=== PATIENT | female | born 1970 | race Caucasian/White ===

== ENCOUNTER → 2019-05-21 12:34 | Outpatient (BNVA) | payer MEDICAID, SELFPAY | PROVIDERS: Visit Provider Specialist | DX: G43.711 Chronic migraine without aura, intractable, with status migrainosus (principal); G51.0 Bell's palsy | CPT/HCPCS: 99203 ==

== ENCOUNTER 2019-05-29 10:01 | Outpatient (CLI) | payer MEDICAID, SELFPAY ==
--- NOTE | 2019-05-29 10:42 | MR_ITS ---
WS: [id number] MRI BRAIN WITHOUT CONTRAST HISTORY: new onset of migraine COMPARISON: None available. TECHNIQUE: Diffusion imaging, multiplanar T1, T2 and FLAIR imaging obtained. No evidence for acute infarct or hemorrhage. Donovan-white matter differentiation is normal. Mild chroni c microvascular ischemic disease in the subcortical and periventricular white matter. No remote or acute infarcts are volume loss. Ventricles and extra-axial spaces are normal. No inferior displacement of cerebellar tonsils. The sella turcica and pituitary gland are unremarkabl e. Posterior fossa is also unremarkable. Dural venous sinuses and resighini of [place] demonstrate no abnormality on this unenhanced studies. Paranasal sinuses: Mild mucoperiosteal thickening. No air-fluid levels. Mastoid air cells: Normal. Calvarium and scalp: Intact.
--- NOTE | 2019-05-29 11:49 | MR_ITS ---
WS: [id number] MRI HEAD WITHOUT CONTRAST TECHNIQUE: Sagittal T1, T2 axial, T2 axial FLAIR, axial and coronal T1 images, axial susceptibility w eighted imaging, axial diffusion weighted images, and coronal T2 images were obtained. CLINICAL INFORMATION: new onset of migraine COMPARISON: None. FINDINGS: No evidence of restricted diffusion to suggest acute ischemia. Ventricular system and basal cisterns are patent. Mild supratentorial periventricular and subcortical white matter changes nonspecific in a patient this age but can be seen with hypertension, diabetes, collagen vascular disease, and migrain e headaches. No significant infratentorial lesions. Normal posterior fossa. Normal vascular flow voids at the skull base. No extra-axial fluid collection s. Incidental prominent perivascular spaces in the basal ganglia. Visualized upper cervical spine is normal. Normal optic chiasm and pituitary infundibulum. Normal cavernous sinus. Temporal lobes and hi ppocampal formations are normal in appearance. No hemosiderin on susceptibly weighted images. Promine nt bilateral intraparotid lymph nodes likely reactive. MR/MR head wo con* [id number] IMPRESSION: 1. No evidence of restricted diffusion to suggest acute ischemia. 2. Mild supratentorial white matter changes nonspecific in a patient this age but can be seen with hypertension, diabetes, and migraine headaches. No signifi cant infratentorial lesions. 3. Temporal lobes and hippocampal formations are normal in appearance. Normal optic chiasm. 4. No hemosiderin on susceptibly weighted images. 5. Paranasal sinuses and mastoid air cells well aerated.
== END 2019-05-29 10:02 | disposition home or self-care (01) ==
LOC: RADWPI 10:06
PROVIDERS: Visit Provider Specialist
DX: G43.909 Migraine, unspecified, not intractable, without status migrainosus (principal); R29.90 Unspecified symptoms and signs involving the nervous system
CPT/HCPCS: 70551